=== PATIENT | male | born 1990 | race Caucasian/White ===

== ENCOUNTER 2022-07-23 01:14 | Emergency (ER) | payer MEDICAID ==
[~2022-07-23] VITALS: Ht 190.5 cm; Wt 92.0 kg
[2022-07-23 01:34] VITALS: BP 113/78
== END 2022-07-23 03:40 | disposition left against medical advice (07) ==
LOC: ER 01:14
DX: Z53.21 Procedure and treatment not carried out due to patient leaving prior to being seen by health care provider (principal)
CPT/HCPCS: 99281